=== PATIENT | female | born 1945 | race Caucasian/White ===

== ENCOUNTER 2016-09-02 22:23 | Emergency (ER) | payer MEDICARE, BC ==
[~2016-09-02] VITALS: Ht 162.6 cm; Wt 76.7 kg
[~2016-09-02 22:23] MED LIST: ACET-2321 PO; AMLO5TAB66 PO; ASCO500T9 PO; ASPI-557 PO; ATEN50TA PO; ATOR10TA PO; BIOT10003 PO; CALC-689 PO; CEPH-583 PO; CHOL10003 PO; ESOM20CA PO; ESTR1VAG VAGINALLY; FAMO-137 PO; FLUT9.9S NAS; GLUC-251 PO; MULT-806 PO; OMEG300C PO; PRED20TA PO; SENN-99 PO; UBID1CAP18 PO
[2016-09-02 22:26] VITALS: Ht 162.6 cm; Wt 76.7 kg
--- OUTSIDE RECORDS SUMMARY | 2016-09-02 22:27 | XMS REPORT | Continuity of Care Document ---
Author Author [facility] Organization [facility] Address Unknown Phone Unavailable Support Name Relationship Address Phone JOSE TRAORE MD Caregiver [address] [place] [address] Unavailable AAMIRANI KLEIN DO Caregiver [address] [place] [address] Unavailable PETE RAMIRES Next Of Kin [address] [place] [address] Insurance Providers Guarantor Pietro Ramires Address [address] [place] [address] Email [email or web address] Payer Medicare Policy Number [id number] Subscriber's Name Pietro Ramires Relationship 18 Self Effective Date 09 Payer Blue [employer] Select Plan 65 Policy Number [id number] Subscriber's Name Pietro Ramires Relationship 18 Self Group Number [id number] Advance Directives Directive Response Recorded Date/Time Advanced Directives Type None 05/01/16 9:42pm Chief Complaint and Reason for Visit Chief Complaint Lower Extremity Pain Reason for Visit Sciatica Problems Active Problems Medical Problem Onset Date Status Abdominal pain Unknown Acute Acute bronchitis Unknown Acute Colitis Unknown Acute Costochondritis Unknown Acute Cystitis Unknown Acute Dizziness Unknown Acute IBS (irritable bowel syndrome) Unknown Labyrinthitis Unknown Acute Near syncope Unknown Acute UTI Unknown Acute Vertigo Unknown Acute Past Problems Medical Problem Onset Date Sciatica Unknown Medications Current Home Medications Medication Dose Units Route Directions Days Qty Instructions Start Date Acetaminophen (Tylenol) 325 Mg Tablet 2 Tab Oral Every 4 Hours Prn 30 Tablet 05/01/16 Amlodipine Besylate (Norvasc) 5 Mg Tablet 5 Mg Oral Daily Ascorbic Acid (Vitamin C) 500 Mg Tablet 1 Tab Oral Daily 05/01/16 Aspirin (Aspir 81) 81 Mg Tablet. 1 Tab Oral Bedtime 01/08/15 Atenolol 50 Mg Tablet 50 Mg Oral Bedtime 60 01/08/15 Atorvastatin Calcium (Lipitor) 10 Mg Tablet 07/30/15 Biotin 10,000 Mcg Capsule 10,000 Mcg Oral Daily 05/01/16 Calcium Carbonate/Vitamin D3 (Calcium 500 + Vit D Caplet) 1 Each Tablet 1 Tab Oral Daily 05/01/16 Cephalexin (Keflex) 500 Mg Capsule 1 Cap Oral Three Times A Day 05/01/16 Cholecalciferol (Vitamin D) 1,000 Unit Capsule 1,000 Unit Oral Daily 03/24/13 Esomeprazole Mag Trihydrate (Nexium) 20 Mg Capsule 1 Tab Oral Daily 05/01/16 Estradiol (Estring) 1 Each Vaginsert 1 Each Vaginally Daily 1 Box 05/01/16 Famotidine (Pepcid) 20 Mg Tablet 40 Mg Oral Daily 60 Tablet Fluticasone Propionate (Flonase Allergy Relief 50 Mcg/Actuation Nasal) 9.9 Ml [place].susp 2 [place] Intranasal As Needed 05/01/16 Glucosamine/D3/Boswellia Shelley (Osteo Bi-Flex Tablet) 1 Each Tablet 1 Tab Oral Daily 05/01/16 Multivitamins (Multivitamin) 1 Tab Tablet 1 Tab Oral Daily [place]-3 Fatty Acids (Fish Oil) 300 Mg Capsule 300 Mg Oral Daily 03/24/13 Prednisone 20 Mg Tablet 40 Mg Oral Daily 10 Tablet 05/01/16 Sennosides/Docusate Sodium (Stool Softener-Laxative Tablet) 1 Each Tablet 2 Tab Oral Daily 05/01/16 Ubidecarenone/Vitamin E Mixed (Coq10 Sg 100 Softgel) 1 Cap Capsule 1 Cap Oral Daily 03/24/13 Past Home Medications Medication Directions Ordered Status Ascorbic Acid 500 Mg Tablet, 1 Tab Oral Daily 05/01/16 Discontinued Ascorbic Acid (Vitamin C) 1,000 Mg Tablet, 1000 Mg Oral Daily 06/08/14 Discontinued Aspirin (Aspir 81) 81 Mg Tablet.dr, 81 Mg Oral Daily 03/25/10 Discontinued Atenolol 25 Mg Tablet, 1 Tab Oral Daily 01/08/15 Discontinued Atenolol 50 Mg Tablet, 50 Mg Oral Twice A Day 03/25/10 Discontinued Atorvastatin Calcium (Lipitor) 10 Mg Tablet, 10 Mg Oral Mon/Wed/Fri 09/18/08 Discontinued Calcium Carbonate/Vitamin D3 (Calcium + D 600 Mg Tablet) 1 Tab Tablet, 2 Tab Oral Bedtime 03/25/10 Discontinued Cholecalciferol (Vitamin D) 1,000 Unit Capsule, 4000 Unit Oral Bedtime Discontinued Docusate Sodium (Colace) 100 Mg Capsule, 100 Mg Oral Three Times A Day Discontinued Ergocalciferol (Vitamin D) 50,000 Unit Capsule, 20438 Unit Oral Weekly On Mon09/18/08 Discontinued Esomeprazole Mag Trihydrate (Nexium) 20 Mg Capsule, 22.3 Mg Oral Daily Discontinued Fish Oil/[place]-3 Fatty Acids (Fish Oil 1,000 Mg Capsule) 1 Cap Capsule, 1 Cap Oral Twice A Day 03/25/10 Discontinued Levofloxacin 500 Mg Tablet, 500 Mg Oral Daily 07/31/15 Discontinued Melatonin 3 Mg Tablet, 1 Tab Oral Bedtime 07/30/15 Discontinued Metronidazole (Flagyl) 500 Mg Tablet, 500 Mg Oral Q8h @ 0100/0900/1700 Discontinued Montelukast Sodium (Singulair) 10 Mg Tablet, 10 Mg Oral As Needed 03/24/10 Discontinued Multivitamins (Multivitamin) 1 Tab Tablet, 1 Tab Oral Daily 03/25/10 Discontinued Omeprazole Magnesium (Prilosec Otc) 20 Mg Tablet.dr, 20 Mg Oral As Needed 25/03 Discontinued Ondansetron (Zofran Odt) 4 Mg Tab.rapdis, 4 Mg Oral Q6h/0300,0900,1500,2100 07/31/15 Discontinued Rabeprazole Sodium (Aciphex) 20 Mg Tablet.dr, 20 Mg Oral Daily 09/18/08 Discontinued Simvastatin 10 Mg Tablet, 10 Mg Oral Mon,Mon,Mon03/25/10 Discontinued Sucralfate (Carafate) 1 G Tablet, 1 G Oral As Needed 03/25/10 Discontinued Trubiotic , 1 Cap Oral Daily 01/08/15 Discontinued Zolpidem Tartrate (Ambien) 5 Mg Tablet, 5 Mg Oral Bedtime 03/25/10 Discontinued Social History Social History Problem Response Recorded Date/Time Onset Date Status Hx Substance Use No 05/01/2016 10:25pm Not Applicable Not Applicable Hx Alcohol Use No 05/01/2016 10:25pm Not Applicable Not Applicable Tobacco Usage none 07/12/2014 9:18pm Not Applicable Not Applicable Query Response Start Date Stop Date Smoking Status Never smoker Hospital Discharge Instructions No hospital discharge instructions. Plan of Care Discharge Date 05/01/16 11:43pm Disposition 01 DISCHARGED HOME, SELF-CARE Condition at Discharge Improved Instructions/Education Provided Sciatica DI for Sciatica Prescriptions See Medication Section Referrals AMAIRANI KLEIN DO Address: [address] [place] [address] [place] [address] Additional Instructions/Education Prednisone 20 mg, 2 tablets daily for 5 days Aleve [id number], 2 tablets twice daily for pain Pepcid 20 mg, 2 tablets daily to reduce stomach acid or irritation Care Plan and Goals Physician Care Plan Problem: Bilateral sciatica Goal: Follow up with primary care provider Instructions: Take medications and follow care plan as discussed/written Prednisone 20 mg, 2 tablets daily for 5 days Aleve [id number], 2 tablets twice daily for pain Pepcid 20 mg, 2 tablets daily to reduce stomach acid or irritation Functional Status No functional status results. Allergies, Adverse Reactions, Alerts Allergen Type Severity Reaction Status Last Updated Antihistamines Adverse Reaction Intermediate FAST HEART RATE Active Morphine Allergy Unknown Active 05/01/16 Oxycodone Allergy Unknown Active 05/01/16 Methylprednisolone Allergy Unknown Active 05/01/16 Tramadol Allergy Severe Active 05/01/16 Meloxicam Allergy Severe Active 05/01/16 Cilostazol Allergy Severe Active 05/01/16 Immunizations Query Response on File Recorded Date/Time Hx Influenza Vaccination Y fall01/08/15 1:52pm Hx Pneumococcal Vaccination Y 200601/08/15 1:52pm Hx Influenza Vaccination Y fall01/08/15 1:52pm Influenza Vaccine Hx 201405/01/16 10:25pm Vital Signs Acute Vital Signs Vital Response Date/Time Temperature (Fahrenheit) 97.9 deg F (96.8 - 99.1) 05/01/2016 11:43pm Temperature (Calculated Celsius) 36.65960 degrees C (36.0 - 37.3) 05/01/2016 11:43pm Pulse Rate (adult) 72 bpm (60 - 100) 05/01/2016 11:43pm Respiratory Rate 20 breaths/min (10 - 20) 05/01/2016 11:43pm O2 Sat by Pulse Oximetry 94 % (90 - 100) 05/01/2016 11:43pm Blood Pressure 145/76 mm Hg 05/01/2016 11:43pm Height (Feet) 5 feet 05/01/2016 9:42pm Height (Inches) 4.00 inches 05/01/2016 9:42pm Weight (Kilograms) 77.100 kg 05/01/2016 9:42pm Body Mass Index (BMI) 29.0 05/01/2016 9:42pm Results Laboratory Results Test Name Result Units Flags Reference Collection Date/Time Result Date/ Time Comments Urine Color YELLOW YELLOW 03/24/2016 2:20pm 03/24/2016 3:09pm Urine Turbidity CLEAR CLEAR 03/24/2016 2:20pm 03/24/2016 3:09pm Urine Specific [place] >=1.030 H 1.015-1.025 03/24/2016 2:20pm 2015 3:09pm Urine pH 5.5 5.0-8.0 03/24/2016 2:20pm 03/24/2016 3:09pm Urine Leukocyte Esterase NEGATIVE NEGATIVE 03/24/2016 2:20pm 2015 3:09pm Urine Nitrite POSITIVE A NEGATIVE 03/24/2016 2:20pm 03/24/2016 3:09pm Urine Protein NEGATIVE NEGATIVE 03/24/2016 2:20pm 03/24/2016 3:09pm Urine Glucose (UA) NEGATIVE NEGATIVE 03/24/2016 2:20pm 03/24/2016 3: 09pm Urine Ketones NEGATIVE NEGATIVE 03/24/2016 2:20pm 03/24/2016 3:09pm Urine Urobilinogen 0.2 EU/DL NORMAL 03/24/2016 2:20pm 03/24/2016 3: 09pm Urine Bilirubin NEGATIVE NEGATIVE 03/24/2016 2:20pm 03/24/2016 3: 09pm Urine Blood NEGATIVE NEGATIVE 03/24/2016 2:20pm 03/24/2016 3:09pm Urine WBC 0-1 /HPF 0-5 03/24/2016 2:20pm 03/24/2016 3:47pm Urine RBC 1-3 /HPF 0-3 03/24/2016 2:20pm 03/24/2016 3:47pm Urine Squamous Epithelial Cells 5-10 03/24/2016 2:20pm 03/24/2016 3 :47pm Urine Bacteria 1+ H NEGATIVE 03/24/2016 2:20pm 03/24/2016 3:47pm Urine Culture Indicated CULT REFLEXED &SETUP 03/24/2016 2:20pm 3:47pm Microbiology Results Procedure Source Organism/Result Collection Date/Time Result Date/Time Result Status Urine Culture Not Provided MIXED MADI 03/24/2016 3:47pm 03/26/2016 2: 17pm Final Procedures Procedure Status Date Provider(s) URINALYSIS AUTO W/SCOPE Completed 03/04/16 CULTURE AEROBIC IDENTIFY Completed 03/04/16 URINE CULTURE/COLONY COUNT Completed 03/04/16 MICROBE SUSCEPTIBLE CRISTINA Completed 03/04/16 URINALYSIS AUTO W/SCOPE Completed 03/24/16 URINE CULTURE/COLONY COUNT Completed 03/24/16 Encounters Encounter Location Arrival/Admit Date Discharge/Depart Date Attending Provider Departed Emergency Room [facility] 05/01/16 9:39pm 05/01/16 11: 43pm JOSE TRAORE MD Registered Clinic [facility] 03/24/16 2:56pm MARTHA TRENT APRN Registered Clinic [facility] 03/04/16 3:33pm MARTHA TRENT APRN Recent Diagnosis
[2016-09-02] MEDS ORDERED: NORMAL SALINE 1,000 ML IV ONE (22:55)
--- NOTE | 2016-09-02 23:03 | ERPDOC ---
Departure Disposition Decision Date: Sep 03, 2016 Disposition Decision Time: 01:40 Disposition: 01 DISCHARGED HOME, SELF-CARE Impression Impression Impression: Primary Impression: Fatigue Fatigue type: unspecified Qualified Codes: R53.83 - Other fatigue Severity: Mild Condition: Improved Seen By: Physician only Referrals: AMAIRANI KLEIN DO (Family) 3 Days Patient Instructions: Fatigue (ED) Problems/Meds/Labs Reviewed?: Yes Medications reviewed and manag: Yes Additional Instructions: We did not find a cause of your symptoms tonight. Follow up with your doctor this next week. Follow up care ordered?: Yes Mental Status: Alert, Oriented HPI - Cardiac General Chief Complaint: Palpitations Stated Complaint: PALPITATIONS Time Seen by Provider: 22:38 Source: patient, family Exam Limitations: no limitations HPI - Cardiac General Initial Comments 71yo woman with 2wks of fatigue. Pt has had progressive fatigue that culminated in pts inability to compete her work today or care for her neighbor's pet tonight. Pt denies all ROS sx other than alternating diarrhea constipation. No P /P factors. Occurred At: home Onset/Timing: Gradual, Getting worse Duration: other Severity: moderate Prior CP/Workup: non-cardiac Aspirin Today: contraindicated Associated Symptoms: malaise, shortness of breath, weakness, DENIES: chest pain , cough, diaphoresis, fever/chills, headaches, loss of appetite, nausea/vomiting , seizure, syncope Hx of Similar Symptoms: No Allergies: Coded Allergies: cilostazol (Verified Allergy, Severe, 09/02/16) meloxicam (Verified Allergy, Severe, 09/02/16) tramadol (Verified Allergy, Severe, 09/02/16) methylprednisolone (Verified Allergy, Unknown, 09/02/16) morphine (Verified Allergy, Unknown, 09/02/16) oxycodone (Verified Allergy, Unknown, 09/02/16) Antihistamines (Verified Adverse Reaction, Intermediate, FAST HEART RATE, 09/02/16) Past History Patient Medical History (1) IBS (irritable bowel syndrome) Permanent Comment: by history Last Edited By: Sole Vuong on Aug 03, 2015 09:39 (2) Cystitis Past Medical History Metabolic: cancer, hypercholesterolemia, hypertension ENMT: allergies Cardiac: CAD Respiratory: COPD GI: GERD, constipation, other Female: UTI, pyelonephritis Musculoskeletal: back pain, osteoarthritis Integumentary: melanoma Surgical History General: appendix, back, gallbladder, tonsils Cardiac: cardiac cath Reproductive/: hysterectomy, other Joint: foot, knee Vaccines Hx Influenza Vaccination: Yes (fall) Hx Pneumococcal Vaccination: Yes (2006) Social History Sexuality: male partner Review of Systems Constitutional Constitutional: fatigue, weakness All other Systems All Other Systems: Reviewed and Negative Physical Exam General General Nourishment: well nourished, well developed, appears stated age, no acute distress, adult General Body Habitus: well groomed Vitals and Pain First Documented Vital Signs Date Time Temp Pulse Resp B/P Pulse Ox O2 Delivery O2 Flow Rate FiO2 09/02/16 22:26 98.2 94 22 173/78 97 Room Air Weight: Kilograms: 76.700 Height (feet): 5 Height (inches): 4.00 Triage Pain Scale: RN VS reviewed by Provider: Yes Eyes (brief) Eyes Brief: found: EOMI, PERRL, not found: scleral icterus ENMT (brief) ENMT Brief: FOUND: TM clear, TM good light reflex, ear canals clear, mucosa moist, normal tonsils Neck (brief) Neck: FOUND: trachea midline, NOT FOUND: JVD, adenopathy, thyromegaly Respiratory (brief) Respiratory: FOUND: clear all torres, equal bilaterally, symmetrical, NOT FOUND : rales, wheezes Cardiovascular (brief) Cardiac: FOUND: regular rate, regular rhythm, NOT FOUND: click, gallop, murmur , pedal edema, peripheral edema, rub Capillary Refill: <2 sec Pulses: all distal extremities, equal, strong Abdomen (brief) Abdominal Brief: FOUND: bowel normo active x4, soft, NOT FOUND: distended, hepatosplenomegaly, pulsatile mass, tender Lymphatic (brief) Lymphatic Brief: NOT FOUND: adenopathy, lymphedema Musculoskeletal (brief) Musculoskeletal Brief: NOT FOUND: deformity, loss of motion, spasm, tenderness Integumentary (brief) Integumentary Brief: FOUND: pink, warm Neurologic (brief) Neurological Brief: FOUND: CN w/o gross def to obs, DTR 2/4 all extremities, gait w/o gross def to obs, motor-no gross deficits, sensory-no gross deficits, NOT FOUND: Babinski Psychiatric (brief) Psychiatric Brief: FOUND: alert, normal affect, oriented Differential Diagnoses Considering: Acute HI, Anxiety/Panic, Atrial Fibrillation, Bradycardia, CHF, Heart Block, Pericarditis, Prolonged Qtc, PSVT, Pulmonary Edema, Ventricular Tachycardia Progress Results/Orders Orders Procedure Category Date Status Time Iv Lock (Ed Only) EDM 09/02/16 Transmitted 22:55 Nothing By Mouth (Ed EDM 09/02/16 Transmitted Only) 22:55 EKG EKG 09/02/16 Taken 22:55 Cbc W/Auto LAB 09/02/16 Complete Diff-Reflex Manual 22:55 Cmp - Comprehensive LAB 09/02/16 Complete Metabolic 22:55 Ua, Dip Wreflex LAB 09/02/16 Complete Microsc & Manager [employer] International 22:55 Tsh - Thyroid Stim LAB 09/02/16 Complete Hormone 22:55 INR LAB 09/02/16 Complete 22:55 PTT LAB 09/02/16 Complete 22:55 Magnesium LAB 09/02/16 Complete 22:55 Phosphorus LAB 09/02/16 Complete 22:55 Occult Blood, Stool LAB 09/02/16 Logged 22:55 Chest, Pa & Lateral RAD 09/02/16 Taken 22:55 Normal Saline (Normal PHA 09/02/16 Complete Saline Iv) 22:55 Probnp LAB 09/02/16 Complete 22:55 Troponin I W LAB 09/02/16 Complete Hemolysis Index 22:55 Lab Results Laboratory Tests Test 09/02/16 23:33 09/02/16 23:51 White Blood Count 9.3T/MM3 Red Blood Count 4.66M/MM3 Hemoglobin 15.3GM/DL Hematocrit 44.7% Mean Corpuscular Volume 95.9UM3 Mean Corpuscular Hemoglobin 32.8UUG Mean Corpuscular Hemoglobin Concent 34.2GM/DL RDW Standard Deviation 43.0FL Platelet Count 213T/MM3 Mean Platelet Volume 10.6UM3 Immature Granulocyte % (Auto) 0.4% Neutrophils (%) (Auto) 62.8% Lymphocytes (%) (Auto) 27.0% Monocytes (%) (Auto) 7.0% Eosinophils (%) (Auto) 2.4% Basophils (%) (Auto) 0.4% Absolute Immature Granulocyte (auto 0.04T/MM3 Absolute Neutrophils (auto) 5.8T/MM3 Absolute Lymphocytes (auto) 2.5T/MM3 Absolute Monocytes (auto) 0.7T/MM3 Absolute Eosinophils (auto) 0.2T/MM3 Absolute Basophils (auto) 0.0T/MM3 Prothromb Time International Ratio 0.96 Activated Partial Thromboplast Time 29.5SEC Turbidity 25 Sodium Level 146MEQ/L Potassium Level 3.6MEQ/L Chloride Level 108MEQ/L Carbon Dioxide Level 27MEQ/L Anion Gap 11MEQ/L Blood Urea Nitrogen 12.0MG/DL Creatinine 0.6MG/DL Glomerular Filtration Rate Calc 98 BUN/Creatinine Ratio 20RATIO Glucose Level 133MG/DL Calculated Osmolality 283MOSM/KG Calcium Level 9.9MG/DL Phosphorus Level 3.5MG/DL Magnesium Level 2.0MG/DL Total Bilirubin 0.60MG/DL Icterus Index < 2 Aspartate Amino Transf (AST/SGOT) 27U/L Alanine Aminotransferase (ALT/SGPT) 31U/L Alkaline Phosphatase 69U/L Troponin I < 0.012ng/ml AK-Prp-K-Type Natriuretic Peptide 37PG/ML Total Protein 7.5G/DL Albumin 4.3G/DL Globulin 3.2G/DL Albumin/Globulin Ratio 1.3RATIO Thyroid Stimulating Hormone (TSH) 1.01MIU/L Chemistry Specimen Hemolysis < 15 Urine Collection Type Cleancatch-midstream Urine Color Yellow Urine Turbidity Clear Urine pH 5.5 Urine Specific [place] 1.020 Urine Protein Negative Urine Glucose (UA) Negative Urine Ketones Negative Urine Blood Negative Urine Nitrite Negative Urine Bilirubin Negative Urine Urobilinogen 0.2EU/DL Urine Leukocyte Esterase Trace Urinalysis Comment Microscopic not ind. Medications Current ED Medications Sodium Chloride (Normal Saline IV) 1,000 ml @ 125 mls/hr Q8H ONCE IV Last administered on 09/02/16t 23:40; Start 09/02/16 at 22:55; Stop 09/03/16 at 02:21; Status DC Progress Progress BNP not resulted due to necessary system repair. Discussed findings so far with pt. Pt repeats continuously that she just doesn't feel well, that she forgot some things that she needed, and that she just isn't feeling like herself. Pt is perseverating. Discussed that I needed to review ALL of the labs and that we would investigate all urgent/emergent/obvious causes of pts sx and devise a plan after. Discussed findings and lack of significant abn's with pt and , who voiced understanding. Recommend f/u with PCM. EKG EKG : Rate: 60-100 Rhythm: sinus [place]: left QRS: other (Low voltage) Intervals: normal ST/T: normal Interpreted by: signing physician Xray Xray : Xray: CXR PA/Lat Interpretation: Normal, Interpreted by REINALDO Dejesus DO Sep 02, 2016 23:03
[2016-09-02 23:41] LABS: BASOPHILS % (AUTO) 0.4 % (0-2); EOSINOPHILS # (AUTO) 0.2 T/MM3 (0-0.5); EOSINOPHILS % (AUTO) 2.4 % (0-4); HCT - HEMATOCRIT 44.7 % (36-46); HGB - HEMOGLOBIN 15.3 GM/DL (12-16); IMMATURE GRANULOCYTE # (AUTO) 0.04 T/MM3 (0.00-0.03); IMMATURE GRANULOCYTE % (AUTO) 0.4 % (0.0-0.5); LYMPHOCYTES # (AUTO) 2.5 T/MM3 (1-4.8); MEAN CORPUSCULAR HGB 32.8 UUG (26-34); MEAN CORPUSCULAR HGB CONC(MCHC 34.2 GM/DL (31-37); MEAN CORPUSCULAR VOLUME 95.9 UM3 (80-100); MEAN PLATELET VOLUME 10.6 UM3 (9.4-12.4); MONOCYTES # (AUTO) 0.7 T/MM3 (0-0.8); NEUTROPHILS #(AUTO)-ABSOLUTE 5.8 T/MM3 (1.8-7.7); NEUTROPHILS % (AUTO) 62.8 % (33-66); RED BLOOD COUNT 4.66 M/MM3 (4.00-5.20); WBC - WHITE BLOOD COUNT 9.3 T/MM3 (4.5-11.0)
[2016-09-02 23:47] LABS: INR 0.96 (0.76-1.04); PROTHROMBIN TIME 10.5 SEC (9.31-12.49); PTT 29.5 SEC (24-36)
[2016-09-02 23:54] LABS: ALBUMIN 4.3 G/DL (3.5-5.0); ALBUMIN/GLOBULIN RATIO 1.3 RATIO (1.1-2.2); ALKALINE PHOSPHATASE 69 U/L (38-126); ALT (SGPT) 31 U/L (9-52); ANION GAP 11 MEQ/L (5-15); AST (SGOT) 27 U/L (14-36); BUN/CREATININE RATIO 20 RATIO (6-26); CALCIUM 9.9 MG/DL (8.4-10.2); CHLORIDE 108 MEQ/L (98-107); CO2 - CARBON DIOXIDE 27 MEQ/L (22-30); CREATININE 0.6 MG/DL (0.7-1.2); GLOMERULAR FILTRATION RATE 98; GLUCOSE 133 MG/DL (65-110); PHOSPHORUS 3.5 MG/DL (2.5-4.5); POTASSIUM 3.6 MEQ/L (3.6-5); SODIUM 146 MEQ/L (134-144); TOTAL PROTEIN 7.5 G/DL (6.3-8.2)
[2016-09-03 00:03] LABS: BLOOD, URINE NEGATIVE (NEGATIVE); COLOR,URINE YELLOW (YELLOW); LEUKOCYTE ESTERASE ,URINE TRACE (NEGATIVE); NITRITE,URINE NEGATIVE (NEGATIVE); UROBILINOGEN,URINE 0.2 EU/DL (NORMAL)
[2016-09-03] MEDS ORDERED: MELA3TAB30 PO (00:15)
[2016-09-03] MEDS ORDERED: MELO-273 PO (00:15)
[2016-09-03] MEDS ORDERED: CYCL-375 PO (00:15)
[2016-09-03] MEDS ORDERED: MISO200T PO (00:20)
[2016-09-03 01:01] LABS: PROBNP 37 PG/ML (0-175)
[2016-09-03 01:23] LABS: THYROID STIM HORMONE-TSH 1.01 MIU/L (0.47-4.68)
[2016-09-03 02:00] VITALS: BP 156/70; PULSE 85; RESP 17; TEMP 98.2; O2SAT 96
--- NOTE | 2016-09-04 10:24 | DI ---
INDICATION: ITS.REASON: FATIGUE PROCEDURE: CHEST 2-VIEWS UPRIGHT (PA \T\ LAT) Encounter: Initial COMPARISON: January 08, 2015 FINDINGS: The lungs are clear without evidence of focal abnormal airspace opacity. There is no pleural effusion or pneumothorax. The heart size, mediastinal contours and pulmonary vascularity are within normal limits. There is no significant skeletal abnormality. IMPRESSION: No acute cardiopulmonary disease. .
== END 2016-09-03 02:00 | disposition home or self-care (01) ==
LOC: ED 22:23
DX: R53.83 Other fatigue (principal); R53.1 Weakness; R53.81 Other malaise; R06.02 Shortness of breath; I10 Essential (primary) hypertension; I25.10 Atherosclerotic heart disease of native coronary artery without angina pectoris
CPT/HCPCS: 71020; 80053; 81003; 83735; 83880; 84100; 84443; 84484; 85025; 85610; 85730; 93005; 96360; 96361; 99284; J7030; 36000

== ENCOUNTER → 2016-09-16 | Outpatient (CLI) | payer MEDICARE, BC ==
[~2016-09-16] MED LIST changes: -CEPH-583 PO; +CYCL-375 PO; -FAMO-137 PO; -FLUT9.9S NAS; +MELA3TAB30 PO; +MELO-273 PO; +MISO200T PO; -OMEG300C PO; -PRED20TA PO
--- NOTE | 2016-09-16 11:56 | DI ---
Indication:ITS.REASON: N39.0 UTI; K59.00 CONSTIPATION; K57.92 DIVERTICULITIS OF INTESTINE Procedure:BARIUM ENEMA W/AIR CONTRAST XF DOUBLE CONTRAST COLON: Uniform Attendant KUB: Two cake puller abdominal radiographs were obtained. Cholecystectomy clips are visualized. Posterior decompression surgery at L4 and L5. Technique: Using fluoroscopic guidance and meticulous graded compression, a double contrast barium enema was performed. Fluoroscopic imaging was obtained in the supine AP, LPO, RPO, and left lateral positions. Conventional x-ray imaging of the abdomen was also obtained. Findings: Diverticulosis of the sigmoid and descending portions of the colon. The remainder of the exam is negative. There is no evidence of diverticulitis. There is no filling defect to suggest a polyp. There is no annular constricting lesion. There is no obstruction. Fluoroscopy dose: 97.38 mGy (Cumulative air kerma) Wilberto Dubose RPA/MIHIR performed this under my direct supervision. .
== END ==
LOC: IMA 08:57
PROVIDERS: ATTEND Internal Medicine Gastroenterology
DX: K57.30 Diverticulosis of large intestine without perforation or abscess without bleeding (principal); N39.0 Urinary tract infection, site not specified; K59.00 Constipation, unspecified

== ENCOUNTER → 2016-10-10 | Outpatient (CLI) | payer MEDICARE, BC | LOC: WC.BC 11:09 | DX: Z12.31 Encounter for screening mammogram for malignant neoplasm of breast (principal) | CPT/HCPCS: 77063; G0202 ==

== ENCOUNTER 2017-12-20 14:51 | Observation (INO) ==
[2017-12-20] MEDS: SALINE FLUSH 10ml SYRINGE IVF PRN ×2 (15:07→20:28)
--- NOTE | 2017-12-20 15:07 | Emergency Department Report ---
General Adult HPI - General Chief complaint: Chest Pain Stated complaint: CP, nausea, GIBBS, back pain Time Seen by Provider: 12/20/17 15:00 Source: patient Mode of arrival: ambulatory Limitations: no limitations - History of Present Illness HPI narrative: 72 F presents to the ED with the chief complaint of chest pain which began approximately 4 days ago. She was at home when her symptoms began. Symptoms have been persistent in nature since onset. Patient also notes nausea and feeling intermittently sweaty with her chest pain. Pressure is rated at 8/10. Pain is a pressure. No radiation. No other complaints or associated symptoms. Patient denies any trauma or injury. - Related Data Home Medications Medication Instructions Recorded Confirmed Biotin 10,000 mcg PO DAILY #0 05/01/16 12/20/17 Melatonin 3 mg PO HS #30 tab 09/03/16 12/20/17 Amlodipine [Norvasc] 5 mg PO DAILY 07/09/17 12/20/17 Ascorbic Acid [Vitamin C] 1,000 mg PO DAILY 07/09/17 12/20/17 Aspirin [Aspirin EC] 81 mg PO HS 07/09/17 12/20/17 Atenolol [Tenormin] 50 mg PO BID 07/09/17 12/20/17 Cholecalciferol (Vitamin D3) 2,000 unit PO DAILY 07/09/17 12/20/17 [Vitamin D3] Multivitamin [One Daily] 1 tab PO DAILY 07/09/17 12/20/17 Rosuvastatin Calcium 40 mg PO HS 07/09/17 12/20/17 Estrogen Compound 1 tab PO HS 12/20/17 12/20/17 Nitrofurantoin Macrocrystal 100 mg PO HS 12/20/17 12/20/17 [Nitrofurantoin] Allergies Allergy/AdvReac Type Severity Reaction Status Date / Time cilostazol Allergy Unknown Verified 12/20/17 15:23 meloxicam Allergy Unknown Verified 12/20/17 15:23 methylprednisolone Allergy Unknown Verified 07/24/17 15:04 morphine Allergy Unknown Verified 12/20/17 15:23 oxycodone Allergy Unknown Verified 12/20/17 15:23 tramadol Allergy Unknown Verified 12/20/17 15:23 Antihistamines - Alkylamine AdvReac Intermediate Tachycardia Verified 12/20/17 15:23 Review of Systems Constitutional: Denies: fever, chills Eyes: Denies: eye pain, vision change ENT: Denies: ear pain, throat pain Cardiovascular: Reports: chest pain. Denies: palpitations Respiratory: Denies: cough, dyspnea Gastrointestinal: Reports: nausea. Denies: abdominal pain, vomiting, diarrhea Genitourinary: Denies: urgency, dysuria Musculoskeletal: Denies: back pain, arthralgia Integumentary: Denies: erythema, rash Neurological: Denies: headache, numbness, paresthesias Psychiatric: Denies: anxiety, depression Endocrine: Denies: polydipsia, polyuria Hematological/Lymphatic: Denies: easy bruising, lymphadenopathy Allergic/Immunologic: Denies: facial swelling, urticaria PFSH Patient Stated Medical History Hearing Loss Yes Other HEENT Yes: WEARS GLASSES Other Cardiology Yes: 30% BLOCKED ARTERY Pneumonia Yes Other GI Yes: DIVERTICULITIS Hx Urinary Tract Infection Yes Anesthesia Reactions Yes: NAUSEA AFTER Other Yes: RADIATION THERAPY Medical History Updates: Diverticulosis. Hypertension. UTI Surgical History: General: appendix, back, gallbladder, tonsils. Cardiac: cardiac cath. Reproductive/: hysterectomy, other. Joint: foot, knee Family History: Reviewed and noncontributory. - Social History Smoking status: Never smoker Substance use type: does not use Alcohol intake frequency: does not drink Physical Exam - Limitations Limitations: no limitations - General General appearance: alert, in no apparent distress - Normal Exams: Head:: Normocephalic without trauma Eyes:: Pupils are PERRLA w/ EOMI, No scleral icterus, irritation, or foreign bodies noted ENMT:: No facial trauma, nasal exudates, pharyngeal erythema, or exudates are noted Dental: No fractured, loose, or missing teeth noted Neck:: Full range of motion, without adenopathy, JVD, bruits or thyromegaly Chest/Respirations:: Clear all torres, with good airflow, and symmetry bilaterally Cardiovascular:: Regular rate and rhythm, without murmur or gallop, Pulses 2+ all extremities, capillary refill, <2 seconds all extremities Abdomen:: Bowel sounds positive, soft, non-tender, non-distended, no hepatosplenomegaly, masses or bruits noted Lymphatic:: No lymphadenopathy, or lymphedema noted Musculoskeletal:: No tenderness, or deformity noted, good range of motion, all extremities Integumentary:: No rashes, hives, or bruising noted, hair and nails, without abnormality Neurological:: Patient is alert, and oriented, cranial nerves, motor/sensory/ cerebellar, exams w/o gross deficits, to observation Psychiatric:: Patient exhibits, appropriate attention, emotion and affect Course Vital Signs Temperature 97.8 F 12/20/17 15:00 Pulse Rate 86 12/20/17 15:00 Respiratory Rate 20 12/20/17 15:00 Blood Pressure 164/71 H 12/20/17 15:00 Pulse Oximetry 94 12/20/17 15:00 Temperature 97.9 F 12/20/17 18:03 Pulse Rate 61 12/20/17 18:03 Respiratory Rate 16 12/20/17 18:03 Blood Pressure 125/63 12/20/17 18:03 Pulse Oximetry 96 12/20/17 18:03 Medical Decision Making - [facility] Narrative Medical decision making narrative: Labs/imaging were discussed in detail with the patient and questions are answered. Patient was given 324 mg of aspirin by mouth times one in the ED. Patient was given 2 sublingual nitroglycerin with no improvement of symptoms. She was given 75 g of fentanyl intravenously and 8 mg of Zofran intravenously with improvement of symptoms. Patient was also given a GI cocktail. Patient is discussed with Dr. Hudson who is the patient's facilities and grounds director who recommends admission to his service for further evaluation and treatment. Patient is in agreement with the current plan of management. She is admitted to the service of cardiology in improved condition. No further orders from accepting physician who is in agreement with the current plan of management. - Differential Diagnosis ACS, Metabolic disorder, PE, Pneumothorax - Lab Data Result diagrams: 12/20/17 15:08 12/20/17 15:08 Lab Results 12/20/17 12/20/17 12/20/17 Range/Units 15:08 15:08 15:08 WBC 8.1 (4.5-11.0) T/MM3 RBC 4.40 (4.00-5.20) M/MM3 Hgb 14.0 (12-16) GM/DL Hct 41.8 (36-46) % MCV 95.0 (80-100) UM3 MCH 31.8 (26-34) UUG MCHC 33.5 (31-37) GM/DL RDW Std Deviation 43.2 (36.9-50.2) FL Plt Count 211 (130-400) T/MM3 MPV 10.3 (9.4-12.4) UM3 Immature Gran % (Auto) 0.2 (0.0-0.5) % Neut % (Auto) 72.3 H (33-66) % Lymph % (Auto) 20.1 L (23-45) % [place] % (Auto) 5.2 (0-9.0) % Eos % (Auto) 2.0 (0-4) % Baso % (Auto) 0.2 (0-2) % Neut # (Auto) 5.8 (1.8-7.7) T/MM3 Lymph # (Auto) 1.6 (1-4.8) T/MM3 [place] # (Auto) 0.4 (0-0.8) T/MM3 Eos # (Auto) 0.2 (0-0.5) T/MM3 Baso # (Auto) 0.0 (0-0.2) T/MM3 Abs Immat Gran (auto) 0.02 (0.00-0.03) T/MM3 D-Dimer 210 (0-230) NG/ML Turbidity < 20 (0-20) Sodium 145 (136-146) MEQ/L Potassium 3.8 (3.6-5) MEQ/L Chloride 109 H (98-107) MEQ/L Carbon Dioxide 24 (22-30) MEQ/L Anion Gap 12 (5-15) meq/L BUN 13.0 (7-17) MG/DL Creatinine 0.5 L (0.7-1.2) mg/dL GFR Calculation 121 BUN/Creatinine Ratio 26 (6-26) RATIO Glucose 139 H (65-110) MG/DL Calculated Osmolality 281 H (261-280) MOSM/KG Calcium 9.7 (8.4-10.2) MG/DL Total Bilirubin 0.70 (0.20-1.30) MG/DL Icterus Index < 2 (0-7) AST 26 (14-36) U/L ALT 21 (1-35) U/L Alkaline Phosphatase 65 (38-126) U/L Troponin I < 0.012 (0-0.12) ng/ml Total Protein 7.9 (6.3-8.2) g/dL Albumin 4.8 (3.5-5.0) g/dL Globulin 3.1 (2.4-3.6) G/DL Albumin/Globulin Ratio 1.5 (1.1-2.2) RATIO Specimen Hemolysis < 15 (0-25) - Radiology Data Chest x-ray: No acute processes. - EKG Data EKG #1 EKG results narrative: Sinus rhythm. 78 beats per minute. No STEMI. Disposition Clinical Impression: Chest pain Qualifiers: Chest pain type: unspecified Qualified Code(s): R07.9 - Chest pain, unspecified Disposition: 02 To [facility] Condition: Stable for Transport Time of Disposition: 16:51 (Admit. Dr. Hudson. ) - Seen By: physician
[2017-12-20] MEDS: NITROGLYCERIN 0.4 MG SUBLINGUAL TABLET SL PRN ×2 (15:21→15:27)
[2017-12-20] MEDS ORDERED: FentaNYL 100 MCG/2 ML INJECTION IVP ONE ×3 (15:40→16:26)
[2017-12-20] MEDS ORDERED: ONDANSETRON 4 MG/2 ML INJECTION IVP ONE ×2 (15:40→16:25)
--- NOTE | 2017-12-20 15:41 | XRay Report ---
Indication: Pain PROCEDURE: XR chest 1V: Encounter: Initial Comparison: 09/02/2016 Findings: Heart size is normal. The lungs are clear. There is no focal opacity to suggest atelectasis or pneumonia. No mediastinal or hilar adenopathy. No pleural effusion. There is perhaps mild tortuosity of the descending thoracic aorta. There is mild dextro convexity of the thoracic spine without significant degenerative disc disease of the thoracic spine. IMPRESSION: No acute process. .
[2017-12-20] MEDS ORDERED: ASPIRIN 81 MG CHEWABLE TABLET PO ONE (15:42)
[2017-12-20] MEDS ORDERED: GI COCKTAIL 30 ML PO ONE (17:37)
[2017-12-20] MEDS: PANTOPRAZOLE 40 MG INJECTION IVP SCH (20:25)
[2017-12-20] MEDS: ENOXAPARIN 40 MG/0.4 ML INJECTION SQ SCH (20:25)
[2017-12-20] MEDS ORDERED: MAG-AL + SIM ORAL LIQUID 30ml PO PRN (20:49)
[2017-12-20] MEDS ORDERED: ACETAMINOPHEN 325 MG TABLET PO PRN (20:50)
[2017-12-20] MEDS ORDERED: ONDANSETRON 4 MG/2 ML INJECTION IVP PRN (20:50)
[2017-12-20] MEDS ORDERED: HYDROCODONE/APAP 5mg/325mg TABLET PO PRN (20:51)
[2017-12-20] MEDS ORDERED: NON-FORMULARY MEDICATION 1 EACH EACH (Nitrofurantoin Macrocrystal [Nitrofurantoin] 100 MG) PO SCH (21:00)
[2017-12-20] MEDS ORDERED: MELATONIN 3 MG PO SCH (21:00)
[2017-12-20] MEDS ORDERED: ROSUVASTATIN CALCIUM 40 MG PO SCH (21:00)
[2017-12-20] MEDS ORDERED: ESTROGEN COMPOUND PO SCH (21:00)
[2017-12-20] MEDS ORDERED: ASPIRIN *EC* 81 MG TABLET PO SCH (21:00)
[2017-12-20] MEDS ORDERED: ATENOLOL 50 MG TABLET PO SCH (21:00)
[2017-12-20] MEDS: ATENOLOL 50 MG TABLET PO SCH (21:32)
[2017-12-21 03:07] VITALS: RESP 17
[2017-12-21] MEDS: SALINE FLUSH 10ml SYRINGE IVF PRN (03:17)
[2017-12-21 07:35] VITALS: BP 142/71; TEMP 98; O2SAT 94
[2017-12-21 07:45] VITALS: PULSE 84
[2017-12-21] MEDS ORDERED: BIOTIN 10000 MCG PO SCH (09:00)
[2017-12-21] MEDS ORDERED: AMLODIPINE 5 MG TABLET PO SCH (09:00)
[2017-12-21] MEDS ORDERED: NON-FORMULARY MEDICATION 1 EACH EACH (Multivitamin [One Daily] 1 TAB) PO SCH (09:00)
[2017-12-21] MEDS ORDERED: MULTI-VITAMIN + MINERAL TABLET PO SCH (09:00)
[2017-12-21] MEDS ORDERED: NON-FORMULARY MEDICATION 1 EACH EACH (Cholecalciferol (Vitamin D3) [Vitamin D3] 2,000 UNIT PO SCH (09:00)
[2017-12-21] MEDS ORDERED: ASCORBIC ACID 500 MG TABLET PO SCH (09:00)
[2017-12-21] MEDS: ATENOLOL 50 MG TABLET PO SCH (09:35)
[2017-12-21] MEDS: ENOXAPARIN 40 MG/0.4 ML INJECTION SQ SCH (09:35)
[2017-12-21] MEDS: PANTOPRAZOLE 40 MG INJECTION IVP SCH (09:35)
--- NOTE | 2017-12-21 10:20 | Cardiology History & Physical ---
History of Present Illness Chief complaint: chest pressure HPI: Julieta is a 72 year old female who is known to Dr. Ram's practice with a history of CAD, PVCs, HTN and HLD who presented to the ED with complaint of chest pain which began approximately 4 days ago. Symptoms have been persistent in nature since onset and she notes nausea and feeling intermittently sweaty with her chest pain. Pressure is rated at 8/10. Pain is a pressure. No radiation. She denied any trauma or injury. Last LHC 06/2005: No CAD, NLLV EF 65% Last MPI 05/2016: EF 67%, normal, low voltage QRS, AWMI Last echo: EF 62%, NWMA, diastolic dysfunction, mild MR, trace TR/PI, PAP 35mmHg Review of Systems - Constitutional Constitutional: Present: anorexia. Absent: chills, fever(s) - EENMT Eyes: Absent: change in vision Balance: Absent: vertigo Mouth/Throat: Absent: sore throat - Cardiovascular Cardiovascular: Present: chest pain (pressure). Absent: palpitations, syncope, dyspnea on exertion, orthopnea, edema, heart murmur Rhythm: Absent: abnormal rhythm Vascular: Absent: pedal edema - Respiratory Respiratory: Absent: cough, dyspnea, dyspnea on exertion - Gastrointestinal Gastrointestinal: Present: nausea, vomiting. Absent: constipation, diarrhea - Genitourinary Genitourinary: Absent: dysuria - Integumentary/Breasts Integumentary: Absent: rash - Neurological Neurological: Absent: dizziness - Endocrine Endocrine: Absent: palpitations PFSH Patient Stated Medical History Hearing Loss Yes Other HEENT Yes: WEARS GLASSES Other Cardiology Yes: 30% BLOCKED ARTERY Pneumonia Yes Other GI Yes: DIVERTICULITIS Hx Urinary Tract Infection Yes Osteoarthritis Yes Anesthesia Reactions Yes: NAUSEA AFTER Other Yes: RADIATION THERAPY Medical History Updates: Diverticulosis. Hypertension. UTI Surgical History: General: appendix, back, gallbladder, tonsils. Cardiac: cardiac cath. Reproductive/: hysterectomy, other. Joint: foot, knee Family History: Brother - CABG age 43 Father - CABG age 83 - Social History Smoking status: Never smoker Substance use type: does not use Alcohol intake frequency: does not drink Medications Home Medications Medication Instructions Recorded Confirmed Type Biotin 10,000 mcg PO DAILY #0 05/01/16 12/20/17 History Melatonin 3 mg PO HS #30 tab 09/03/16 12/20/17 History Amlodipine [Norvasc] 5 mg PO DAILY 07/09/17 12/20/17 History Ascorbic Acid [Vitamin C] 1,000 mg PO DAILY 07/09/17 12/20/17 History Aspirin [Aspirin EC] 81 mg PO HS 07/09/17 12/20/17 History Atenolol [Tenormin] 50 mg PO BID 07/09/17 12/20/17 History Cholecalciferol (Vitamin D3) 2,000 unit PO DAILY 07/09/17 12/20/17 History [Vitamin D3] Multivitamin [One Daily] 1 tab PO DAILY 07/09/17 12/20/17 History Rosuvastatin Calcium 40 mg PO HS 07/09/17 12/20/17 History Estrogen Compound 1 tab PO HS 12/20/17 12/20/17 History Nitrofurantoin Macrocrystal 100 mg PO HS 12/20/17 12/20/17 History [Nitrofurantoin] Allergies Allergy/AdvReac Type Severity Reaction Status Date / Time cilostazol Allergy Unknown Verified 12/20/17 15:23 meloxicam Allergy Unknown Verified 12/20/17 15:23 methylprednisolone Allergy Unknown Verified 07/24/17 15:04 morphine Allergy Unknown Verified 12/20/17 15:23 oxycodone Allergy Unknown Verified 12/20/17 15:23 tramadol Allergy Unknown Verified 12/20/17 15:23 Antihistamines - Alkylamine AdvReac Intermediate Tachycardia Verified 12/20/17 15:23 Exam Vital signs: Temperature 98 F 12/21/17 07:33 Pulse Rate 84 12/21/17 07:39 Respiratory Rate 17 12/21/17 03:00 Blood Pressure 142/71 H 12/21/17 07:33 Pulse Oximetry 94 12/21/17 07:33 - Constitutional no acute distress, well nourished, cooperative - Routine HEENT Exam Head: Present: normocephalic ENT: Present: mucous membranes moist - Routine Neck Exam Absent: JVD, carotid bruit - Routine Chest/Breast/Axilla Exam Chest wall: Absent: tenderness, pacemaker - Routine Respiratory Exam Present: CTA bilaterally. Absent: dyspnea, rales, wheezes - Routine Cardiovascular Exam Present: RRR, S1, S2, no murmur - Routine Abdominal Exam Present: soft, non tender - Routine Extremities Exam Present: no edema, pulses intact - Routine Skin Exam Present: intact, dry, warm - Routine Neurological Exam Present: alert, oriented X3 - Routine Psychiatric Exam Present: normal affect, normal thought process Results 12/21/17 03:02 12/21/17 03:02 Cardiac Enzymes 12/20/17 12/20/17 12/21/17 Range/Units 15:08 20:49 03:02 AST 26 (14-36) U/L Troponin I < 0.012 < 0.012 < 0.012 (0-0.12) ng/ml 12/21/17 Range/Units 08:34 AST (14-36) U/L Troponin I < 0.012 (0-0.12) ng/ml CBC 12/20/17 12/21/17 Range/Units 15:08 03:02 WBC 8.1 9.1 (4.5-11.0) T/MM3 RBC 4.40 4.07 (4.00-5.20) M/MM3 Hgb 14.0 13.1 (12-16) GM/DL Hct 41.8 39.0 (36-46) % Plt Count 211 196 (130-400) T/MM3 Neut # (Auto) 5.8 5.8 (1.8-7.7) T/MM3 Lymph # (Auto) 1.6 2.4 (1-4.8) T/MM3 [place] # (Auto) 0.4 0.6 (0-0.8) T/MM3 Eos # (Auto) 0.2 0.3 (0-0.5) T/MM3 Baso # (Auto) 0.0 0.0 (0-0.2) T/MM3 Comprehensive Metabolic Panel 12/20/17 12/21/17 Range/Units 15:08 03:02 Sodium 145 144 (136-146) MEQ/L Potassium 3.8 3.7 (3.6-5) MEQ/L Chloride 109 H 109 H (98-107) MEQ/L Carbon Dioxide 24 26 (22-30) MEQ/L BUN 13.0 14.0 (7-17) MG/DL Creatinine 0.5 L 0.5 L (0.7-1.2) mg/dL Glucose 139 H 98 (65-110) MG/DL Calcium 9.7 9.1 (8.4-10.2) MG/DL AST 26 (14-36) U/L ALT 21 (1-35) U/L Alkaline Phosphatase 65 (38-126) U/L Total Protein 7.9 (6.3-8.2) g/dL Albumin 4.8 (3.5-5.0) g/dL Intake and Output 12/20/17 12/21/17 12/21/17 22:59 06:59 14:59 Intake Total 300 / 300 Balance 300 / 300 Intake: Oral 300 / 300 Other: # Voids 1 Weight 149 lb 7.574 oz 216 lb 7.903 oz Patient Weight 12/22/17 06:59 Weight 216 lb 7.903 oz - Imaging and Cardiology Echo: pending Imaging & Cardiology Narrative: Date of Exam: 12/20/17 Ordering Provider: Yovanny Hussein DO Type of Exam(s): XR chest 1V Reason for Exam(s): Pain Indication: Pain PROCEDURE: XR chest 1V: Encounter: Initial Comparison: 09/02/2016 Findings: Heart size is normal. The lungs are clear. There is no focal opacity to suggest atelectasis or pneumonia. No mediastinal or hilar adenopathy. No pleural effusion. There is perhaps mild tortuosity of the descending thoracic aorta. There is mild dextro convexity of the thoracic spine without significant degenerative disc disease of the thoracic spine. IMPRESSION: No acute process. . 12/21/17 10:22 EKG interpretations - EKG EKG results cardiology: sinus rhythm - Blocks, axis, hypertrophy, ST abn AV and intraventricular conduction: right bundle branch block (fixed/ intermittent, complete/incomplete) QRS axis and voltage: left axis deviation (-30 to -90) Repolarization changes or abnormalities: nonspecific abnormality, ST segment, and/or T wave Hospital Course This is a general summary of the patient's hospital course. For more details refer to the complete medical record. Time spent with patient: 25 - 35 minutes Resuscitation Status: Full Code Assessment and Plan - Assessment and Plan (1) Chest pain Current visit: Yes Status: Acute - Constant chest pressure the last 4 days, accompanied with nausea and anorexia - Serial troponin x4 negative - EKG: SR, borderline LAD, incomplete RBBB, T wave abnormality - Given Aspirin, Fentanyl IV, Zofran and GI cocktail in the ED - Given Protonix 40mg IV upon admission - 2D echo (2) Atherosclerotic heart disease of [place] coronary artery without angina pectoris Current visit: Yes Status: Chronic Last LHC 06/2005: No CAD, NLLV EF 65% Last MPI 05/2016: EF 67%, normal, low voltage QRS, AWMI Last echo: EF 62%, NWMA, diastolic dysfunction, mild MR, trace TR/PI, PAP 35mmHg (3) Essential (primary) hypertension Current visit: Yes Status: Chronic well controlled on current therapy, continue current therapy (4) Mixed hyperlipidemia Current visit: Yes Status: Chronic takes Rosuvastatin 40mg and Zetia 10mg
--- NOTE | 2017-12-21 13:31 | Discharge Summary ---
Discharge Information Date of admission: 12/20/17 17:38 Anticipated date of discharge: 12/21/17 Attending Physician: Lalo Hudson MD Primary care physician: Susan Cali, - Discharge Diagnosis (1) Chest pain Status: Acute (2) Atherosclerotic heart disease of [place] coronary artery without angina pectoris Status: Chronic (3) Essential (primary) hypertension Status: Chronic (4) Mixed hyperlipidemia Status: Chronic atypical chest pain - Laboratory Labs: 12/21/17 03:02 12/21/17 03:02 History of Present Illness HPI: Julieta is a 72 year old female who is known to Dr. Ram's practice with a history of CAD, PVCs, HTN and HLD who presented to the ED with complaint of chest pain which began approximately 4 days ago. Symptoms have been persistent in nature since onset and she notes nausea and feeling intermittently sweaty with her chest pain. Pressure is rated at 8/10. Pain is a pressure. No radiation. She denied any trauma or injury. Last [facility] 06/2005: No CAD, NLLV EF 65% Last MPI 05/2016: EF 67%, normal, low voltage QRS, AWMI Last echo: EF 62%, NWMA, diastolic dysfunction, mild MR, trace TR/PI, PAP 35mmHg Hospital Course This is a general summary of the patient's hospital course. For more details refer to the complete medical record. Hospital course: Chest pain Current visit: Yes Status: Acute - Constant chest pressure the last 4 days, accompanied with nausea and anorexia - Serial troponin x4 negative - EKG: SR, borderline LAD, incomplete RBBB, T wave abnormality - Given Aspirin, Fentanyl IV, Zofran and GI cocktail in the ED - Given Protonix 40mg IV upon admission - 2D echo Atherosclerotic heart disease of [place] coronary artery without angina pectoris Current visit: Yes Status: Chronic - Last C 06/2005: No CAD, NLLV EF 65% - Last MPI 05/2016: EF 67%, normal, low voltage QRS, AWMI - Last echo: EF 62%, NWMA, diastolic dysfunction, mild MR, trace TR/PI, PAP 35mmHg Essential (primary) hypertension Current visit: Yes Status: Chronic - well controlled on current therapy, continue current therapy Mixed hyperlipidemia Current visit: Yes Status: Chronic - takes Rosuvastatin 40mg and Zetia 10mg Time spent with patient: 25 - 35 minutes Resuscitation Status: Full Code Exam Vital signs: Temperature 98 F 12/21/17 07:33 Pulse Rate 84 12/21/17 07:39 Respiratory Rate 17 12/21/17 03:00 Blood Pressure 142/71 H 12/21/17 07:33 Pulse Oximetry 94 12/21/17 07:33 - Constitutional no acute distress, well nourished, cooperative - Routine HEENT Exam Head: Present: normocephalic ENT: Present: mucous membranes moist - Routine Neck Exam Absent: JVD, carotid bruit - Routine Chest/Breast/Axilla Exam Chest wall: Absent: tenderness - Routine Respiratory Exam Present: CTA bilaterally. Absent: dyspnea, rales, wheezes - Routine Cardiovascular Exam Present: RRR, no murmur - Routine Abdominal Exam Present: soft, non tender - Routine Extremities Exam Present: no edema - Routine Skin Exam Present: intact, dry, warm - Routine Neurological Exam Present: alert, oriented X3 - Routine Psychiatric Exam Present: normal affect, normal thought process Results 12/21/17 03:02 12/21/17 03:02 Cardiac Enzymes 12/20/17 12/20/17 12/21/17 Range/Units 15:08 20:49 03:02 AST 26 (14-36) U/L Troponin I < 0.012 < 0.012 < 0.012 (0-0.12) ng/ml 12/21/17 Range/Units 08:34 AST (14-36) U/L Troponin I < 0.012 (0-0.12) ng/ml CBC 12/20/17 12/21/17 Range/Units 15:08 03:02 WBC 8.1 9.1 (4.5-11.0) T/MM3 RBC 4.40 4.07 (4.00-5.20) M/MM3 Hgb 14.0 13.1 (12-16) GM/DL Hct 41.8 39.0 (36-46) % Plt Count 211 196 (130-400) T/MM3 Neut # (Auto) 5.8 5.8 (1.8-7.7) T/MM3 Lymph # (Auto) 1.6 2.4 (1-4.8) T/MM3 [place] # (Auto) 0.4 0.6 (0-0.8) T/MM3 Eos # (Auto) 0.2 0.3 (0-0.5) T/MM3 Baso # (Auto) 0.0 0.0 (0-0.2) T/MM3 Comprehensive Metabolic Panel 12/20/17 12/21/17 Range/Units 15:08 03:02 Sodium 145 144 (136-146) MEQ/L Potassium 3.8 3.7 (3.6-5) MEQ/L Chloride 109 H 109 H (98-107) MEQ/L Carbon Dioxide 24 26 (22-30) MEQ/L BUN 13.0 14.0 (7-17) MG/DL Creatinine 0.5 L 0.5 L (0.7-1.2) mg/dL Glucose 139 H 98 (65-110) MG/DL Calcium 9.7 9.1 (8.4-10.2) MG/DL AST 26 (14-36) U/L ALT 21 (1-35) U/L Alkaline Phosphatase 65 (38-126) U/L Total Protein 7.9 (6.3-8.2) g/dL Albumin 4.8 (3.5-5.0) g/dL Intake and Output 12/20/17 12/21/17 12/21/17 22:59 06:59 14:59 Intake Total 300 / 300 Balance 300 / 300 Intake: Oral 300 / 300 Other: # Voids 1 Weight 149 lb 7.574 oz 216 lb 7.903 oz Patient Weight 12/22/17 06:59 Weight 216 lb 7.903 oz - Imaging and Cardiology Echo: other (normal per Dr. Hudson, see report) Imaging & Cardiology Narrative: Date of Exam: 12/20/17 Ordering Provider: Yovanny Hussein DO Type of Exam(s): XR chest 1V Reason for Exam(s): Pain Indication: Pain PROCEDURE: XR chest 1V: Encounter: Initial Comparison: 09/02/2016 Findings: Heart size is normal. The lungs are clear. There is no focal opacity to suggest atelectasis or pneumonia. No mediastinal or hilar adenopathy. No pleural effusion. There is perhaps mild tortuosity of the descending thoracic aorta. There is mild dextro convexity of the thoracic spine without significant degenerative disc disease of the thoracic spine. IMPRESSION: No acute process. . 12/21/17 13:29 Discharge Plan - Med Rec/Dispo Referrals/Follow Up: Lalo Hudson MD [Physician] - 01/09/18 3:10 pm [place] Instructions: Angina (DC) Prescriptions: Continue Melatonin 3 mg PO HS #30 tab Ascorbic Acid [Vitamin C] 1,000 mg PO DAILY Atenolol [Tenormin] 50 mg PO BID Aspirin [Aspirin EC] 81 mg PO HS Multivitamin [One Daily] 1 tab PO DAILY Cholecalciferol (Vitamin D3) [Vitamin D3] 2,000 unit PO DAILY Rosuvastatin Calcium 40 mg PO HS Amlodipine [Norvasc] 5 mg PO DAILY Nitrofurantoin Macrocrystal [Nitrofurantoin] 100 mg PO HS Biotin 10,000 mcg PO DAILY #0 Estrogen Compound 1 tab PO HS - Disposition 01 Discharged Home, Self-Care - Dismissal Complete Discharge Instructions are:: Complete
[2017-12-21 14:35] VITALS: BMI 26.1
--- NOTE | 2017-12-21 15:36 | Echocardiogram ---
DATE OF PROCEDURE 12/21/2017 PROCEDURE PERFORMED 2D echocardiography, M-mode assessment, full color spectral Doppler assessment. FINDINGS 1. LEFT VENTRICLE. Left ventricle appears normal in size. Normal left ventricular wall thickness noted. Normal left ventricular systolic function noted. Estimated left ventricular ejection fraction is 60-65%. No significant wall motion abnormalities noted. Diastolic function appears normal for age. 2. RIGHT VENTRICLE. Right ventricle appears normal in size. Normal RV wall thickness noted. Normal right ventricular systolic function noted. 3. RIGHT ATRIUM. Right atrium appears normal in size. 4. LEFT ATRIUM. Left atrium appears normal in size. 5. MITRAL VALVE. Mitral valve appears normal structurally. There is mild mitral regurgitation noted. No significant mitral stenosis noted. 6. AORTIC VALVE. Aortic valve appears trileaflet. No significant aortic stenosis noted. Trace aortic regurgitation noted. 7. TRICUSPID VALVE. Tricuspid valve appears structurally normal. Only trace tricuspid regurgitation noted. 8. PULMONIC VALVE. Pulmonic valve poorly visualized on today's study. Trivial pulmonic regurgitation noted. 9. INFERIOR VENA CAVA. Inferior vena cava appears normal in size. Normal respirophasic variations noted. 10. PULMONARY ARTERY. Estimated pulmonary artery systolic pressure is 30-35 mmHg. CONCLUSION 1. Normal left ventricular systolic function, estimated ejection fraction of 60 -65%. 2. Normal right ventricular systolic function. 3. Mild mitral regurgitation. 4. Mild tricuspid regurgitation noted. 5. IVC is normal in size and normal respirophasic variations. MTDD
[2017-12-21] MEDS ORDERED: ROSUVASTATIN 20 MG TABLET PO SCH (21:00)
[2017-12-21] MEDS ORDERED: NITROFURANTOIN (MACROBID) 100 MG CAPSULE PO SCH (21:00)
[2017-12-21] MEDS ORDERED: MELATONIN 1 MG TABLET PO SCH (21:00)
== END 2017-12-21 14:40 | disposition home or self-care (01) ==
LOC: ED 14:51 → EDHOLD 14:51 → SRG 18:00
PROVIDERS: ADMIT Internal Medicine Interventional Cardiology; ATTEND Internal Medicine Interventional Cardiology